=== PATIENT | female | born 1995 | race Caucasian/White ===

== ENCOUNTER 2017-03-19 18:36 | Emergency (ER) | payer OTHER ==
[~2017-03-19] VITALS: Ht 162.6 cm; Wt 89.8 kg
[~2017-03-19 18:36] MED LIST: Amoxicillin875 MG PO; PROM25 PO; Pepcid40 MG PO; Ultram50 MG PO
[2017-03-19 19:41] LABS: BASOPHILS ABSOLUTE AUTO 0.03 K/mm3 (0.00-0.23); BASOPHILS PERCENT AUTO 0 % (0-2); EOSINOPHILS ABSOLUTE AUTO 0.29 K/mm3 (0.00-0.68); EOSINOPHILS PERCENT AUTO 3 % (0-6); Hematocrit 39.2 % (33.0-51.0); Hemoglobin 13.2 g/dL (11.5-16.0); IMMATURE GRAN ABSOLUTE AUTO 0.03 K/mm3 (0.00-0.10); IMMATURE GRAN PERCENT AUTO 0 % (0-1); LYMPHOCYTES ABSOLUTE AUTO 2.09 K/mm3 (0.84-5.20); LYMPHOCYTES PERCENT AUTO 20 % (21-46); MONOCYTES PERCENT AUTO 13 % (4-13); Mean Corpuscular HGB 29.1 pg (26.0-34.0); Mean Corpuscular HGB Conc 33.7 g/dL (31.5-36.5); Mean Corpuscular Volume 87 fL (80-100); Mean Platelet Volume 11.2 fL (9.1-12.4); NEUTROPHILS ABSOLUTE AUTO 6.62 K/mm3 (1.96-9.15); NEUTROPHILS PERCENT AUTO 63 % (41-73); Platelet Count 213 K/mm3 (150-400); RDW Coefficient Variation 12.1 % (11.7-14.2); RDW Standard Deviation 38.1 fL (35.1-46.3); Red Blood Cell Count 4.53 M/mm3 (3.80-5.20); White Blood Cell Count 10.46 K/mm3 (4.00-11.30)
[2017-03-19 19:57] LABS: Alanine Aminotransfer (ALT/SGP 24 U/L (12-78); Albumin, Blood 3.5 g/dL (3.4-5.0); Alk Phos 82 U/L (50-136); Anion Gap 7 mmol/L (6-16); Aspartate Aminotrans (AST/SGOT 13 U/L (12-37); Bilirubin, Total 0.1 mg/dL (0.1-1.0); Blood Urea Nitrogen 12 mg/dL (8-24); Bun/Creatinine Ratio 17.6 (12.0-20.0); CO2, Blood 27 mmol/L (21-32); Calcium, Blood 8.8 mg/dL (8.5-10.1); Chloride, Blood 106 mmol/L (98-108); Creatinine, Blood 0.68 mg/dL (0.40-1.00); Ethanol (Alcohol), Blood, Med <3 mg/dL; Globulin, Blood 3.6 g/dL (2.2-4.0); Glomerular Filtration Rate >60 (60-); Glucose, Blood 99 mg/dL (70-99); Potassium, Blood 3.8 mmol/L (3.5-5.5); Salicylate <1.7 mg/dL (2.8-20.0); Sodium, Blood 140 mmol/L (136-145); Total Protein, Blood 7.1 g/dL (6.4-8.2)
[2017-03-19 20:12] LABS: Acetaminophen, Random <2.0 ug/mL (10.0-30.0)
== END 2017-03-19 21:12 | disposition home or self-care (01) ==
LOC: ER 18:36
PROVIDERS: Emergency Medicine
DX: F43.21 Adjustment disorder with depressed mood (principal); F43.9 Reaction to severe stress, unspecified; R45.851 Suicidal ideations; F17.200 Nicotine dependence, unspecified, uncomplicated
CPT/HCPCS: 80053; 81000; 81025; 84443; 85025; 93005; 93010; 99283; G0480

== ENCOUNTER 2017-09-30 18:33 | Emergency (ER) | payer OTHER ==
[~2017-09-30] VITALS: Ht 162.6 cm; Wt 82.1 kg
[2017-09-30] MEDS ORDERED: Amoxicillin500 MG PO (19:19)
== END 2017-09-30 19:26 | disposition home or self-care (01) ==
LOC: ER 18:33
DX: K04.7 Periapical abscess without sinus (principal)
CPT/HCPCS: 41800; 99282

== ENCOUNTER 2018-08-04 18:15 | Emergency (ER) | payer OTHER ==
[~2018-08-04] VITALS: Ht 162.6 cm; Wt 84.4 kg
[~2018-08-04 18:15] MED LIST changes: +Amoxicillin500 MG PO
== END 2018-08-04 18:34 | disposition home or self-care (01) ==
LOC: ER 18:15
DX: S20.219A Contusion of unspecified front wall of thorax, initial encounter (principal); V00.131A Fall from skateboard, initial encounter
CPT/HCPCS: 99281

== ENCOUNTER 2018-09-28 18:21 | Emergency (ER) | payer OTHER ==
[~2018-09-28] VITALS: Ht 162.6 cm; Wt 76.2 kg
[2018-09-28] MEDS ORDERED: METPRE4DP PO (20:00)
== END 2018-09-28 20:55 | disposition home or self-care (01) ==
LOC: ER 18:21
DX: G56.22 Lesion of ulnar nerve, left upper limb (principal); F17.210 Nicotine dependence, cigarettes, uncomplicated
CPT/HCPCS: 73080; 73090; 90471; 90714; 99283-25; J7512

== ENCOUNTER 2018-10-28 15:53 | Observation (INO) | payer OTHER ==
[~2018-10-28] VITALS: Ht 167.6 cm; Wt 79.7 kg
[~2018-10-28 15:53] MED LIST changes: +METPRE4DP PO
[2018-10-28 16:10] LABS: Calcium, Ionized (POC) 1.16 mmol/L (1.10-1.46); Chloride (POC) 109 mmol/L (98-108); Glucose (ISTAT POC) 109 mg/dL (70-99); Hemoglobin (POC) 13.9 g/dL (12.0-16.0); Potassium (POC) 3.2 mmol/L (3.5-5.5); Sodium (POC) 140 mmol/L (135-148); Total CO2 (POC) 20 mmol/L (21-32)
[2018-10-28 16:19] LABS: BASOPHILS ABSOLUTE AUTO 0.07 K/mm3 (0.00-0.23); BASOPHILS PERCENT AUTO 1 % (0-2); EOSINOPHILS ABSOLUTE AUTO 0.24 K/mm3 (0.00-0.68); EOSINOPHILS PERCENT AUTO 2 % (0-6); Hematocrit 42.6 % (33.0-51.0); Hemoglobin 13.9 g/dL (11.5-16.0); IMMATURE GRAN ABSOLUTE AUTO 0.03 K/mm3 (0.00-0.10); IMMATURE GRAN PERCENT AUTO 0 % (0-1); LYMPHOCYTES ABSOLUTE AUTO 2.75 K/mm3 (0.84-5.20); LYMPHOCYTES PERCENT AUTO 27 % (21-46); MONOCYTES ABSOLUTE AUTO 1.06 K/mm3 (0.16-1.47); MONOCYTES PERCENT AUTO 11 % (4-13); Mean Corpuscular HGB 29.7 pg (26.0-34.0); Mean Corpuscular HGB Conc 32.6 g/dL (31.5-36.5); Mean Corpuscular Volume 91 fL (80-100); NEUTROPHILS ABSOLUTE AUTO 5.94 K/mm3 (1.96-9.15); NEUTROPHILS PERCENT AUTO 59 % (41-73); Platelet Count 205 K/mm3 (150-400); RDW Coefficient Variation 11.9 % (11.7-14.2); RDW Standard Deviation 39.9 fL (35.1-46.3); Red Blood Cell Count 4.68 M/mm3 (3.80-5.20); White Blood Cell Count 10.09 K/mm3 (4.00-11.30)
[2018-10-28 16:25] LABS: Source, Urine Clean Catch
[2018-10-28 16:28] LABS: Appearance, Urine Clear (Clear); Bilirubin, Urine Neg (Neg); Blood, Urine Neg (Neg); Color, Urine Yellow (P-Yellow); Glucose Qualitative, Urine Neg (Neg); Ketones, Urine Neg (Neg); Leukocyte Esterase, Urine Neg (Neg); Nitrite, Urine Neg (Neg); Protein, Urine Neg (Neg); Urobilinogen, Urine NORM (Normal)
[2018-10-28 16:39] LABS: U Amphetamine Screen DETECTED; U Barbituate Screen Not Detected; U Benzodiazapine Screen Not Detected; U Buprenorphine Screen Not Detected; U Cannabinoids Screen DETECTED; U Cocaine Screen Not Detected; U Methadone Screen Not Detected; U Methamphetamine Screen Not Detected; U Opiates Screen Not Detected; U Oxycodone Screen Not Detected; U Phencyclidine Screen Not Detected; U Propoxyphene Screen Not Detected
[2018-10-28 16:41] LABS: Alanine Aminotransfer (ALT/SGP 21 U/L (12-78); Albumin, Blood 3.7 g/dL (3.4-5.0); Albumin/Globulin Ratio 1.1 (0.8-1.8); Alk Phos 48 U/L (50-136); Anion Gap 5 mmol/L (6-16); Aspartate Aminotrans (AST/SGOT 11 U/L (12-37); Bilirubin, Total 0.2 mg/dL (0.1-1.0); Blood Urea Nitrogen 14 mg/dL (8-24); Bun/Creatinine Ratio 18.8 (12.0-20.0); CO2, Blood 24 mmol/L (21-32); Calcium, Blood 8.9 mg/dL (8.5-10.1); Chloride, Blood 113 mmol/L (98-108); Creatinine, Blood 0.75 mg/dL (0.40-1.00); Globulin, Blood 3.3 g/dL (2.2-4.0); Glomerular Filtration Rate >60 (60-); Glucose, Blood 109 mg/dL (70-99); Potassium, Blood 3.3 mmol/L (3.5-5.5); Salicylate 1.8 mg/dL (2.8-20.0); Sodium, Blood 142 mmol/L (136-145)
[2018-10-28 16:49] LABS: Acetaminophen, Random <2.0 ug/mL (10.0-30.0)
--- NOTE | 2018-10-28 20:20 | NUR ---
ADMIT 23 YEAR OLD FEMALE TO ICU 2 OBS PT. 2 MD HOLD. GAIT STEADY TO BED MONITOR PLACED SHOWING SINUS RHYTHM. HEART RATE 90'S-100'S. COOPERATIVE TO CARES HOWEVER IMPULSIVE. MULTIPLE REQUEST TO USE PHONE AND FOR FOOD.LUNG SOUNDS CLEAR RESPIRATIONS REGULAR AND EASY ON ROOM AIR SPO2 97-100% ABDOMEN SOFT WITH BOWEL SOUNDS FOUR QUADS. GAIT STEADY TO TIOILET VOIDS DAVID URINE AND LG AMT FORMED BROWN STOOL. BLOOD CONSENT AND RELEASE OF INFORMATION COMPLETED. DENIES FEELING OF SELF HARM HOWEVER WHEN ON PHONE TO SO STATES " THIS WILL BE THE LAST TIME YOU HAVE TO SEE ME ALIVE IN THIS LIFE" REQUESTS "SOMETHING TO HELP ME SLEEP" IMPULSIVE BEHAVIOR. TOLERATES SANDWITCH SODA BROTH PUDDING AND CRACKERS WELL. CONTINUE TO MONITOR AND REPORT CHANGE IN PATEINT CONDITION.
--- NOTE | 2018-10-28 20:41 | NUR ---
SHAKES HEAD IN DENIAL WHEN AKED IF ONINUES TO WANT TO HARM SELF
[2018-10-29 04:35] LABS: Anion Gap 5 mmol/L (6-16); Blood Urea Nitrogen 13 mg/dL (8-24); Bun/Creatinine Ratio 23.3 (12.0-20.0); CO2, Blood 25 mmol/L (21-32); Calcium, Blood 8.1 mg/dL (8.5-10.1); Chloride, Blood 114 mmol/L (98-108); Creatinine, Blood 0.56 mg/dL (0.40-1.00); Glomerular Filtration Rate >60 (60-); Glucose, Blood 103 mg/dL (70-99); Potassium, Blood 4.1 mmol/L (3.5-5.5); Sodium, Blood 144 mmol/L (136-145)
--- NOTE | 2018-10-29 06:29 | NUR ---
SHIFT SUMMARY: RESTS QUIETLY WHEN UNDISTURBED. MONITOR INTACT SHOWING SINUS RHYTHM HEART RATE 60'S. LUNGS CLEAR RESPIRATIONS REGULAR AND EASY ON ROOM AIR. ABDOMEN SOFT WITH BOWEL SOUNDS FOUR QUADS VOIDS DAVID URINE GAIT STEADY TO TOILET. SKIN WARM/DRY/INTACT CONTINUE TO MONITOR AND REPORT CHANGE IN PATIENT CONDITION
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
--- NOTE | 2018-10-29 10:09 | NUR ---
[facility] HERE TO SEE PATIENT. PATIENT PRETENDED TO BE ASLEEP.
--- NOTE | 2018-10-29 11:30 | NUR ---
[facility] CALLED FOR UPDATE.
--- NOTE | 2018-10-29 12:04 | NUR ---
PATIENT SLEEPING ON AND OFF. PATIENT CURRENTLY SITTING UP AND EATING LUNCH IN BED. AFEBRILE. VITAL SIGNS REMAIN STABLE. NO COMPLAINTS. SBA TO TOILET- PATIENT AMBULATED WELL. URINE TEA COLOR. NO OTHER ACUTE CHANGES TO NOTE ON AT THIS TIME. WILL CONTINUE TO MONITOR.
--- NOTE | 2018-10-29 18:27 | NUR ---
SHIFT SUMMARY PATIENT SLEPT ON AND OFF THROUGHOUT SHIFT. PATIENT NOT LETHARGIC WHEN AWAKE. PATIENT REMAINED ALERT AND ORIENTED X 4, AFEBRILE. PATIENT DID NOT HAVE ANY COMPLAINTS OF PAIN DURING SHIFT. PATIENT AMBULATED WELL TO TOILET WITH NURSE PRESENT TO HELP WITH LINES AND CORDS. PATIENT REMAINED SATTING WELL. LUNGS CLEAR T/O. PATIENT REMAINED IN SR, HR 60S TO 90S. BP REMAINED STABLE. PATIENT HAD BM THIS AM. PATIENT HAD VERY LARGE APPETITE T/O DAY. PATIENT VOIDING TEA COLORED URINE. NO CHANGE IN SKIN. IVS REMAIN SALINE LOCKED. DR. PERDOMOUFF IN TO SEE PATIENT AND RECOMMENDING INPATIENT PSYCH TREATMENT. REPORT GIVEN TO MEDICAL FLOOR NURSE. PATIENT WILL BE TRANSFERRED TO MEDICAL FLOOR, ROOM 347 SHORTLY.
--- NOTE | 2018-10-29 18:40 | NUR ---
PATIENT TRANSFERRED TO MEDICAL FLOOR.
--- NOTE | 2018-10-29 18:53 | NUR ---
PT ARRIVED TO ROOM 347 VIA W/C. PT INDEP INTO BED. PT ORIENTED TO ROOM AND CALL SYSTEM. PT CHANGED TO PAPER GOWNS. REMOTE MONITORING ON AT THIS TIME.
--- NOTE | 2018-10-29 23:09 | NUR ---
lt wrist iv present lt ac iv iv gone not documented. removed rt ac iv at pt request for tenderness
--- NOTE | 2018-10-30 03:14 | NUR ---
23 year old female on facility hold for suicide attempt with rx and ETOH continues on suicide precautions with remote camera monitoring verified. Denies current plan for self harm. Has had other attempts in past. She is cooperative and calm. Mostly sleeps, has snack and been awake for only short period. On menses up with supervision to bathroom. Resting quietly. Order for inpt psych unit from DR Jaramillo in place. Continue to observe.
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
--- NOTE | 2018-10-30 13:05 | NUR ---
NURSE TO NURSE CALLED TO [facility] AT [facility].
--- NOTE | 2018-10-30 17:03 | NUR ---
PT PARENTS TOOK PT BELONGINGS HOME PER PT REQUEST.
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
--- NOTE | 2018-10-31 04:19 | NUR ---
SHIFT SUMMARY PT PARENTS CAME TO VISIT HER THIS SHIFT WHICH DID CAUSE PT SOME ANXIETY. SEE PRIOR NURSES NOTE. CALL FROM [facility] MARQUEZ THIS SHIFT AROUND 0230 NOTIFYING US THAT A BED IS NOW AVALIBLE. PAPERWORK COMPLETED BY VENDING SERVICE TECHNICIAN AND TRANSPORT IS NOW ARRANGED. SECURE TRANSPORT TO COME GET PT AT 10 AM. THEY WOULD NOT COME AND GET THE PT ANY SOONER THAN THAT. PT HAS RESTED FOR MOST OF THE NIGHT. MEDICATED X1 FOR ANXIETY. PT HAS BEEN PLESANT WITH CARE. WILL CONTINUE TO MONITOR AND REPORT TO ONCOMING RN.
--- NOTE | 2018-10-31 07:05 | NUR ---
VERIFY VIDEO MONITOR VERIFIED VIDEO MONITORING WITH MONITOR ELHAM.
--- NOTE | 2018-10-31 14:19 | NUR ---
DISCHARGE NOTE DISCHARGE PLANNING FROVIDED PACKET TO MECHANICAL SPECIALIST. ALL ORDERS FAXED TO [facility]. TRANSPORT ARRIVED TO TRANSPORT PT. ALL PERSONAL POSSESSIONS GATHERED AND SENT WITH PT.
--- NOTE | 2018-10-31 14:22 | NUR ---
DISCHARGE ADDENDUM INFORMED BY CHARGE THAT REPORT WAS GIVEN BY PREVIOUS SHIFT TO LIEN WALLACE
== END 2018-10-31 14:12 ==
LOC: ER 15:53 → ICUW 15:54 → ICUE 15:54 → MEDS 10-29 18:37
PROVIDERS: Emergency Medicine; Nurse Practitioner Acute Care; ADMIT Internal Medicine
DX: T42.4X2A Poisoning by benzodiazepines, intentional self-harm, initial encounter (principal); T42.8X2A Poisoning by antiparkinsonism drugs and other central muscle-tone depressants, intentional self-harm, initial encounter; T40.7X2A Poisoning by cannabis (derivatives), intentional self-harm, initial encounter; F12.10 Cannabis abuse, uncomplicated; F15.10 Other stimulant abuse, uncomplicated; F10.129 Alcohol abuse with intoxication, unspecified; E87.6 Hypokalemia; F32.9 Major depressive disorder, single episode, unspecified; F41.9 Anxiety disorder, unspecified; F17.200 Nicotine dependence, unspecified, uncomplicated; Y90.4 Blood alcohol level of 80-99 mg/100 ml
CPT/HCPCS: 36415; 51702; 71045; 80047; 80048; 80053; 81003; 81025; 83735; 84703; 85014; 85025; 93005; 93010; 94762; 96361-59; 96365; 96365-59; 96366; 96372; 96375-59; 99285-25; G0378; G0480; J1650; J2060; J2310; J3480; J7030

== ENCOUNTER 2018-11-15 12:05 | Emergency (ER) | payer OTHER ==
[~2018-11-15] VITALS: Ht 162.6 cm; Wt 81.7 kg
[2018-11-15] MEDS ORDERED: CHLO25A PO (12:12)
[2018-11-15] MEDS ORDERED: Lexapro 10 mg T10 MG PO (12:13)
== END 2018-11-15 12:13 | disposition home or self-care (01) ==
LOC: ER 12:05
DX: Z76.0 Encounter for issue of repeat prescription (principal)
CPT/HCPCS: 99281

== ENCOUNTER 2018-12-23 13:21 | Observation (INO) | payer OTHER ==
[~2018-12-23] VITALS: Ht 162.6 cm; Wt 83.9 kg
[~2018-12-23 13:21] MED LIST changes: +CHLO25A PO; +Lexapro 10 mg T10 MG PO
[2018-12-23 14:24] LABS: BASOPHILS ABSOLUTE AUTO 0.06 K/mm3 (0.00-0.23); BASOPHILS PERCENT AUTO 1 % (0-2); EOSINOPHILS ABSOLUTE AUTO 0.23 K/mm3 (0.00-0.68); EOSINOPHILS PERCENT AUTO 2 % (0-6); Hematocrit 39.1 % (33.0-51.0); Hemoglobin 12.7 g/dL (11.5-16.0); IMMATURE GRAN ABSOLUTE AUTO 0.03 K/mm3 (0.00-0.10); IMMATURE GRAN PERCENT AUTO 0 % (0-1); LYMPHOCYTES ABSOLUTE AUTO 1.83 K/mm3 (0.84-5.20); LYMPHOCYTES PERCENT AUTO 18 % (21-46); MONOCYTES ABSOLUTE AUTO 1.08 K/mm3 (0.16-1.47); MONOCYTES PERCENT AUTO 11 % (4-13); Mean Corpuscular HGB Conc 32.5 g/dL (31.5-36.5); Mean Corpuscular Volume 89 fL (80-100); Mean Platelet Volume 9.9 fL (9.1-12.4); NEUTROPHILS ABSOLUTE AUTO 7.09 K/mm3 (1.96-9.15); NEUTROPHILS PERCENT AUTO 69 % (41-73); Platelet Count 223 K/mm3 (150-400); RDW Coefficient Variation 11.9 % (11.7-14.2); RDW Standard Deviation 38.5 fL (35.1-46.3); Red Blood Cell Count 4.38 M/mm3 (3.80-5.20); White Blood Cell Count 10.32 K/mm3 (4.00-11.30)
[2018-12-23 14:55] LABS: Alanine Aminotransfer (ALT/SGP 35 U/L (12-78); Albumin, Blood 3.7 g/dL (3.4-5.0); Alk Phos 59 U/L (50-136); Anion Gap 3 mmol/L (6-16); Aspartate Aminotrans (AST/SGOT 16 U/L (12-37); Bilirubin, Total 0.3 mg/dL (0.1-1.0); Blood Urea Nitrogen 13 mg/dL (8-24); Bun/Creatinine Ratio 20.7 (12.0-20.0); CO2, Blood 26 mmol/L (21-32); Chloride, Blood 107 mmol/L (98-108); Creatinine, Blood 0.63 mg/dL (0.40-1.00); Ethanol (Alcohol), Blood, Med <3 mg/dL; Globulin, Blood 3.7 g/dL (2.2-4.0); Glomerular Filtration Rate >60 (60-); Glucose, Blood 124 mg/dL (70-99); Potassium, Blood 3.8 mmol/L (3.5-5.5); Salicylate <1.7 mg/dL (2.8-20.0); Sodium, Blood 136 mmol/L (136-145); Total Protein, Blood 7.4 g/dL (6.4-8.2)
[2018-12-23 15:07] LABS: Acetaminophen, Random <2.0 ug/mL (10.0-30.0)
[2018-12-23] MEDS ORDERED: ESCI20 PO (15:13)
[2018-12-23] MEDS ORDERED: Vistaril50 MG PO (15:14)
[2018-12-23] MEDS ORDERED: ZIPR80 PO (15:15)
[2018-12-23] MEDS ORDERED: ARIPIPRAZOLE5 MG PO (15:16)
[2018-12-23] MEDS ORDERED: VRAYLAR1.5 MG PO ×2 (15:29→16:01)
[2018-12-23 15:39] LABS: Source, Urine Clean Catch
[2018-12-23 15:43] LABS: Appearance, Urine Hazy (Clear); Bilirubin, Urine Neg (Neg); Blood, Urine 4+ (Neg); Color, Urine Yellow (P-Yellow); Glucose Qualitative, Urine Neg (Neg); Ketones, Urine Neg (Neg); Leukocyte Esterase, Urine Neg (Neg); Nitrite, Urine Neg (Neg); Protein, Urine Neg (Neg); Urobilinogen, Urine NORM (Normal)
[2018-12-23 15:58] LABS: Amorphous Light (0-Heavy); Bacteria Few /hpf; Squamous Epithelial Cells Few /hpf (Few); U Amphetamine Screen Not Detected; U Barbituate Screen Not Detected; U Benzodiazapine Screen Not Detected; U Buprenorphine Screen Not Detected; U Cannabinoids Screen DETECTED; U Cocaine Screen Not Detected; U Methadone Screen Not Detected; U Methamphetamine Screen Not Detected; U Opiates Screen Not Detected; U Oxycodone Screen Not Detected; U Phencyclidine Screen Not Detected; U Propoxyphene Screen Not Detected; White Blood Cells, Urine 0-2 /hpf (0-5)
== END 2018-12-24 17:30 | disposition left against medical advice (07) ==
LOC: ER 13:21 → EOR 13:22
PROVIDERS: Physician Assistant; ADMIT Emergency Medicine
DX: F33.3 Major depressive disorder, recurrent, severe with psychotic symptoms (principal); F17.210 Nicotine dependence, cigarettes, uncomplicated; F15.10 Other stimulant abuse, uncomplicated; F12.10 Cannabis abuse, uncomplicated; F10.10 Alcohol abuse, uncomplicated; Z79.899 Other long term (current) drug therapy
CPT/HCPCS: 36415; 80053; 81001; 81025; 84443; 85025; 99285; G0378; G0480; Q0163; Q3014

== ENCOUNTER → 2019-04-03 | Outpatient (CLI) | payer OTHER ==
[~2019-04-03] MED LIST changes: +ARIPIPRAZOLE5 MG PO; +ESCI20 PO; +VRAYLAR1.5 MG PO; +Vistaril50 MG PO; +ZIPR80 PO
[2019-04-03 19:16] LABS: U Amphetamine Screen Not Detected; U Barbituate Screen Not Detected; U Benzodiazapine Screen Not Detected; U Buprenorphine Screen Not Detected; U Cannabinoids Screen DETECTED; U Cocaine Screen Not Detected; U Methadone Screen Not Detected; U Methamphetamine Screen Not Detected; U Opiates Screen Not Detected; U Oxycodone Screen Not Detected; U Phencyclidine Screen Not Detected; U Propoxyphene Screen Not Detected
== END | disposition home or self-care (01) ==
LOC: LAB 17:24 → LAB SHORT 17:24
PROVIDERS: Registered Nurse Psychiatric/Mental Health
DX: Z51.81 Encounter for therapeutic drug level monitoring (principal); Z79.899 Other long term (current) drug therapy

== ENCOUNTER 2024-07-14 07:41 | Emergency (ER) | payer OTHER ==
[~2024-07-14] VITALS: Ht 162.6 cm; Wt 99.3 kg
[2024-07-14 08:04] VITALS: BP 139/98
[2024-07-14] MEDS ORDERED: Buprenorphine HCL/Naloxone HCL 8MG-2MG Tab SL ONE (09:50)
[2024-07-14] MEDS ORDERED: ESCI20 PO (10:12)
[2024-07-14] MEDS ORDERED: SUBOXONE 8 MG-1 EACH SL (10:12)
[2024-07-14] MEDS ORDERED: Citalopram Hydrobromide 20 MG Tab PO ONE (10:20)
== END 2024-07-14 10:46 | disposition home or self-care (01) ==
LOC: ER 07:41
DX: Z76.0 Encounter for issue of repeat prescription (principal); F32.A Depression, unspecified; F17.210 Nicotine dependence, cigarettes, uncomplicated; Z79.899 Other long term (current) drug therapy
CPT/HCPCS: 99281; A9270

== ENCOUNTER 2025-01-16 13:51 | Emergency (ER) | payer OTHER ==
[~2025-01-16] VITALS: Ht 162.6 cm; Wt 114.3 kg
[~2025-01-16 13:51] MED LIST changes: +SUBOXONE 8 MG-1 EACH SL
[2025-01-16] MEDS ORDERED: FAMO20 PO (14:15)
[2025-01-16 14:45] LABS: BASOPHILS ABSOLUTE AUTO 0.06 K/mm3 (0.00-0.23); BASOPHILS PERCENT AUTO 1 % (0-2); EOSINOPHILS ABSOLUTE AUTO 0.69 K/mm3 (0.00-0.68); EOSINOPHILS PERCENT AUTO 6 % (0-6); Hematocrit 41.5 % (33.0-51.0); Hemoglobin 13.7 g/dL (11.5-16.0); IMMATURE GRAN ABSOLUTE AUTO 0.03 K/mm3 (0.00-0.10); IMMATURE GRAN PERCENT AUTO 0 % (0-1); LYMPHOCYTES ABSOLUTE AUTO 1.48 K/mm3 (0.84-5.20); LYMPHOCYTES PERCENT AUTO 13 % (21-46); MONOCYTES ABSOLUTE AUTO 1.01 K/mm3 (0.16-1.47); MONOCYTES PERCENT AUTO 9 % (4-13); Mean Corpuscular HGB Conc 33.0 g/dL (31.5-36.5); Mean Corpuscular Volume 83 fL (80-100); NEUTROPHILS ABSOLUTE AUTO 7.78 K/mm3 (1.96-9.15); NEUTROPHILS PERCENT AUTO 71 % (41-73); NRBC ABSOLUTE 0.00 K/mm3 (0.00-0.02); NRBC Auto 0.0 /100 WBC (0.0-0.2); Platelet Count 231 K/mm3 (150-400); RDW Coefficient Variation 11.6 % (11.7-14.2); RDW Standard Deviation 34.9 fL (35.1-46.3)
[2025-01-16] MEDS ORDERED: Ipratropium/Albuterol SulF 2.5-0.5MG/3 ML Amp ONE (14:47)
[2025-01-16] MEDS ORDERED: Ipratropium/Albuterol SulF 2.5-0.5MG/3 ML Amp INH ONE (14:55)
[2025-01-16] MEDS ORDERED: Ondansetron HCl 2 MG / ML 2ML Vial IV ONE (14:55)
[2025-01-16] MEDS ORDERED: Albuterol 2.5 MG/3 ML VIAL INH SCH ×2 (14:55→16:15)
[2025-01-16] MEDS ORDERED: LORazepam 2 MG/ML 1ML Injection IV ONE (14:55)
[2025-01-16] MEDS ORDERED: Ketorolac Tromethamine 30mg Vial IV ONE (14:55)
[2025-01-16 14:57] LABS: Influenza A, PCR NEGATIVE (NEGATIVE); Influenza B, PCR NEGATIVE (NEGATIVE); Resp Syncytial Virus, PCR NEGATIVE (NEGATIVE); SARS-Cov-2 (COVID-19) PCR, MMC NEGATIVE (NEGATIVE)
[2025-01-16 14:59] LABS: Alanine Aminotransfer (ALT/SGP 33.0 U/L (12-78); Albumin, Blood 3.5 g/dL (3.4-5.0); Albumin/Globulin Ratio 0.9 (0.8-1.8); Anion Gap 6.0 mmol/L (3-11); Aspartate Aminotrans (AST/SGOT 25.0 U/L (12-37); Bilirubin, Total 0.5 mg/dL (0.1-1.0); Blood Urea Nitrogen 11.0 mg/dL (8-24); CO2, Blood 29.0 mmol/L (21-32); Calcium, Blood 9.2 mg/dL (8.5-10.1); Chloride, Blood 104.0 mmol/L (98-108); Creatinine, Blood 0.6 mg/dL (0.40-1.00); Globulin, Blood 4.1 g/dL (2.2-4.0); Glucose, Blood 97.0 mg/dL (70-99); Potassium, Blood 3.6 mmol/L (3.5-5.5); Sodium, Blood 135.0 mmol/L (136-145); Total Protein, Blood 7.6 g/dL (6.4-8.2)
[2025-01-16] MEDS ORDERED: PROM12.5S PR (16:45)
[2025-01-16] MEDS ORDERED: ALBU2.5V5 INH (16:45)
[2025-01-16] MEDS ORDERED: ONDA4ODT MM (16:45)
[2025-01-16] MEDS ORDERED: PRED20 PO (16:45)
[2025-01-16 17:09] VITALS: BP 140/80
== END 2025-01-16 18:35 | disposition home or self-care (01) ==
LOC: ER 13:51
PROVIDERS: Student in an Organized Health Care Education/Training Program
DX: J45.901 Unspecified asthma with (acute) exacerbation (principal); A08.4 Viral intestinal infection, unspecified; E86.0 Dehydration; F17.210 Nicotine dependence, cigarettes, uncomplicated
CPT/HCPCS: 71046; 80053; 83690; 83735; 84484; 85025; 87637; 93005; 93010; 99285-25; J1885; J2060; J2405; J2919; J7120